=== PATIENT | male | born 1975 | race American Indian/Alaskan Native ===

== ENCOUNTER 2019-01-22 09:22 | Emergency (ER) | payer OTHER ==
--- NOTE | 2019-01-22 10:08 | ER ---
Nurse's Notes [facility] Name: Maged Cam Age: 43 yrs Sex: Male : 1975 Arrival Date: 01/22/2019 Time: 09:25 Bed 20 Private MD: Diagnosis: Abscess, furuncle and carbuncle of nose Presentation: 01/22 09:36 Presenting complaint: Patient states: sore in right nostril X 5 days, on antibiotics X iw 2 days, swelling and pain to area. Transition of care: patient was not received from another setting of care. Onset of symptoms was January 17, 2019. Risk Assessment: Do you want to hurt yourself or someone else? Patient reports no desire to harm self or others. Initial Sepsis Screen: Does the patient meet any 2 criteria? No. Patient's initial sepsis screen is negative. Does the patient have a suspected source of infection? No. Patient's initial sepsis screen is negative. Care prior to arrival: None. 09:36 Method Of Arrival: Ambulatory iw 09:36 Acuity: LULI 4 iw Historical: - Allergies: 09:39 No Known Allergies; iw - Home Meds: 09:39 amoxicillin 500 mg Oral tab 1 tab every 12 hours [Active]; metronidazole 500 mg Oral iw tab 1 tab every 12 hours [Active]; - PMHx: 09:39 None; iw - PSHx: 09:39 None; iw - Immunization history:: Adult Immunizations not up to date. - Social history:: Smoking status: Patient/guardian denies using tobacco. - Ebola Screening: : Patient negative for fever greater than or equal to 101.5 degrees Fahrenheit, and additional compatible Ebola Virus Disease symptoms Patient denies exposure to infectious person Patient denies travel to an Ebola-affected area in the 21 days before illness onset No symptoms or risks identified at this time. Screenin:29 Abuse screen: Denies threats or abuse. Denies injuries from another. Nutritional ph screening: No deficits noted. Tuberculosis screening: No symptoms or risk factors identified. Fall Risk None identified. Assessment: 10:10 General: Appears in no apparent distress. uncomfortable, well groomed, Behavior is ph calm, cooperative, appropriate for age, Denies fever. Pain: Complains of pain in nose. Neuro: Level of Consciousness is awake, alert, obeys commands, Oriented to person, place, time, situation. Cardiovascular: Capillary refill < 3 seconds in bilateral fingers Patient's skin is warm and dry. Respiratory: Airway is patent Respiratory effort is even, unlabored, Respiratory pattern is regular, symmetrical. EENT: Nares area of swelling notd inside R nare. Derm: Skin is intact, is healthy with good turgor, Skin is pink, warm \T\ dry. Musculoskeletal: Circulation, motion, and sensation intact. Range of motion: intact in all extremities. 10:28 Reassessment: Patient appears in no apparent distress at this time. Patient and/or ph family updated on plan of care and expected duration. Pain level reassessed. Patient is alert, oriented x 3, equal unlabored respirations, skin warm/dry/pink. Pt resting quietly, awaiting 15 min shot time prior to d/c. Vital Signs: 09:40 BP 132 / 88; Pulse 72; Resp 16; Temp 98.3; Pulse Ox 98% on R/A; Weight 80 kg; Height 5 iw ft. 6 in. (167.64 cm); Pain 8/10; 09:40 Body Mass Index 28.47 (80.00 kg, 167.64 cm) iw ED Course: 09:25 Patient arrived in ED. mr 09:38 Triage completed. iw 09:38 Arturo Finnegan NP is PHCP. pm1 09:38 Anton Munoz MD is Attending Physician. pm1 09:40 Arm band placed on. iw 09:59 Antonieta Briceño, RN is Primary Nurse. ph 10:10 Patient has correct armband on for positive identification. Bed in low position. Call ph light in reach. Side rails up X 1. Pulse ox on. NIBP on. Door closed. Noise minimized. Warm blanket given. 10:29 No provider procedures requiring assistance completed. Patient did not have IV access ph during this emergency room visit. 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 Lot #: [id number]. } Route: IM; Site: right deltoid; 10:23 Drug: [place] 10 mg-325 mg 1 tabs Route: PO; ph Outcome: 10:07 Discharge ordered by . pm1 11:00 Patient left the ED. ph Signatures: Rand Malloy Irene, CAM RN iw Antonieta Briceño RN RN ph Arturo Finnegan, BULKING MACHINE OPERATOR BULKING MACHINE OPERATOR pm1
--- NOTE | 2019-01-22 10:08 | EDPHYS ---
Physician Documentation [facility] Name: Maged Cam Age: 43 yrs Sex: Male : 1975 Arrival Date: 01/22/2019 Time: 09:25 Bed 20 Private MD: ED Physician Anton Munoz HPI: 01/22 10:06 This 43 yrs old Other Male presents to ER via Ambulatory with complaints of Skin pm1 Sore(s). 10:06 The patient presents with an abscess of the nose. Description: raised. Onset: The pm1 symptoms/episode began/occurred 5 day(s) ago. Possible cause(s): unknown. Associated signs and symptoms: Pertinent negatives: discharge, drainage, fever. Modifying factors: the symptoms are alleviated by nothing, the symptoms are aggravated by touching. Severity of symptoms: in the emergency department the symptoms are actually worse. The patient has not experienced similar symptoms in the past. The patient has not recently seen a physician, but was given a prescription for amoxicillin and Flagyl without evaluation . Right nare abscess [place] was [place] in by a physician in [place] for amoxicillin and Flagyl. Patient reports no improvement with antibiotics.. Historical: - Allergies: 09:39 No Known Allergies; iw - Home Meds: 09:39 amoxicillin 500 mg Oral tab 1 tab every 12 hours [Active]; metronidazole 500 mg Oral iw tab 1 tab every 12 hours [Active]; - PMHx: 09:39 None; iw - PSHx: 09:39 None; iw - Immunization history:: Adult Immunizations not up to date. - Social history:: Smoking status: Patient/guardian denies using tobacco. - Ebola Screening: : Patient negative for fever greater than or equal to 101.5 degrees Fahrenheit, and additional compatible Ebola Virus Disease symptoms Patient denies exposure to infectious person Patient denies travel to an Ebola-affected area in the 21 days before illness onset No symptoms or risks identified at this time. ROS: 10:06 Constitutional: Negative for fever, chills, and weight loss, Eyes: Negative for injury, pm1 pain, redness, and discharge. 10:06 ENT: Negative for injury, pain, and discharge, Neck: Negative for injury, pain, and swelling, Cardiovascular: Negative for chest pain, palpitations, and edema, Respiratory: Negative for shortness of breath, cough, wheezing, and pleuritic chest pain, Abdomen/GI: Negative for abdominal pain, nausea, vomiting, diarrhea, and constipation, Back: Negative for injury and pain, : Negative for injury, bleeding, discharge, and swelling, MS/Extremity: Negative for injury and deformity. 10:06 Neuro: Negative for headache, weakness, numbness, tingling, and seizure. 10:06 Skin: Positive for abscess, of the right nostril, Negative for cellulitis. Exam: 10:06 Constitutional: This is a well developed, well nourished patient who is awake, alert, pm1 and in no acute distress. Head/Face: Normocephalic, atraumatic. Eyes: Pupils equal round and reactive to light, extra-ocular motions intact. Lids and lashes normal. Conjunctiva and sclera are non-icteric and not injected. Cornea within normal limits. Periorbital areas with no swelling, redness, or edema. ENT: Nares patent. No nasal discharge, no septal abnormalities noted. Tympanic membranes are normal and external auditory canals are clear. Oropharynx with no redness, swelling, or masses, exudates, or evidence of obstruction, uvula midline. Mucous membranes moist. Neck: Trachea midline, no thyromegaly or masses palpated, and no cervical lymphadenopathy. Supple, full range of motion without nuchal rigidity, or vertebral point tenderness. No Meningismus. Chest/axilla: Normal chest wall appearance and motion. Nontender with no deformity. No lesions are appreciated. Cardiovascular: Regular rate and rhythm with a normal S1 and S2. No gallops, murmurs, or rubs. Normal PMI, no JVD. No pulse deficits. Respiratory: Lungs have equal breath sounds bilaterally, clear to auscultation and percussion. No rales, rhonchi or wheezes noted. No increased work of breathing, no retractions or nasal flaring. Abdomen/GI: Soft, non-tender, with normal bowel sounds. No distension or tympany. No guarding or rebound. No evidence of tenderness throughout. Back: No spinal tenderness. No costovertebral tenderness. Full range of motion. 10:06 Skin: Appearance: normal except for affected area, abscess, that is small, of the right nostril, no surrounding cellulitis, fluctuance, or drainage. 3 small pustules present on the surface of phlegmon. Needle aspiration without any drainage. Vital Signs: 09:40 BP 132 / 88; Pulse 72; Resp 16; Temp 98.3; Pulse Ox 98% on R/A; Weight 80 kg; Height 5 iw ft. 6 in. (167.64 cm); Pain 8/10; 09:40 Body Mass Index 28.47 (80.00 kg, 167.64 cm) iw MDM: 09:40 Patient medically screened. pm1 10:06 Data reviewed: vital signs. Data interpreted: Pulse oximetry: on room air is 98 %. pm1 Interpretation: normal. Counseling: I had a detailed discussion with the patient and/or guardian regarding: the historical points, exam findings, and any diagnostic results supporting the discharge/admit diagnosis, the need for outpatient follow up, an ENT specialist, to return to the emergency department if symptoms worsen or persist or if there are any questions or concerns that arise at home. 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 Exp: ph 10/24/2020. Lot #: [id number]. } Route: IM; Site: right deltoid; 10:23 Drug: [place] 10 mg-325 mg 1 tabs Route: PO; ph Disposition: 11:42 Co-signature as Attending Physician, Anton Munoz MD. rn Disposition: 01/22/19 10:07 Discharged to Home. Impression: Abscess, furuncle and carbuncle of nose. - Condition is Stable. - Discharge Instructions: Skin Abscess. - Prescriptions for Clindamycin HCl 300 mg Oral Capsule - take 1 capsule by ORAL route every 6 hours for 10 days; 40 capsule. Tylenol- Codeine #3 300-30 mg Oral Tablet - take 2 tablets by ORAL route every 6 hours As needed; 20 tablet. - Medication Reconciliation Form, Thank You Letter, Antibiotic Education, Prescription Opioid Use form. - Follow up: Emergency Department; When: As needed; Reason: Worsening of condition. Follow up: Private Physician; When: 2 - 3 days; Reason: Recheck today's complaints, Continuance of care, Re-evaluation by your physician. - Problem is new. - Symptoms have improved. Signatures: Flavia Blackwell RN RN iw Anton Munoz MD MD rn Antonieta Briceño RN RN ph Marinas, Patrick, [employer] pm1 Corrections: (The following items were deleted from the chart) 10:11 10:07 01/22/2019 10:07 Discharged to Home. Impression: Cutaneous abscess of face. pm1 Condition is Stable. Forms are Medication Reconciliation Form, Thank You Letter, Antibiotic Education, Prescription Opioid Use. Follow up: Emergency Department; When: As needed; Reason: Worsening of condition. Follow up: Private Physician; When: 2 - 3 days; Reason: Recheck today's complaints, Continuance of care, Re-evaluation by your physician. Problem is new. Symptoms have improved. pm1 11:00 10:11 01/22/2019 10:07 Discharged to Home. Impression: Abscess, furuncle and carbuncle ph of nose. Condition is Stable. Forms are Medication Reconciliation Form, Thank You Letter, Antibiotic Education, Prescription Opioid Use. Follow up: Emergency Department; When: As needed; Reason: Worsening of condition. Follow up: Private Physician; When: 2 - 3 days; Reason: Recheck today's complaints, Continuance of care, Re-evaluation by your physician. Problem is new. Symptoms have improved. pm1
[2019-01-22] MEDS ORDERED: TETANUS & DIPHTHERIA TOX,ADULT 0.5 ML VIAL ONE (10:29)
[2019-01-22] MEDS ORDERED: CLINDAMYCIN IV 150 MG/ML (4 mL) VIAL ONE (10:29)
[2019-01-22] MEDS ORDERED: HYDROCODONE/APAP 10/325 TAB ONE (10:29)
== END 2019-01-22 11:00 | disposition home or self-care (01) ==
LOC: ER 09:22
DX: J34.0 Abscess, furuncle and carbuncle of nose (principal); Z23 Encounter for immunization
CPT/HCPCS: 90471; 90714; 96372; 99283; S0077